=== PATIENT | female | born 1955 | race Caucasian/White ===

== ENCOUNTER 2017-08-08 16:21 | Emergency (ER) | payer MEDICARE, MEDICAID ==
[~2017-08-08] VITALS: Ht 165.1 cm; Wt 54.4 kg
[~2017-08-08 16:21] MED LIST: ALBU2.5V38 IH; MIRT15TA PO; QUET50TA PO
[2017-08-08] MEDS ORDERED: DEXAMETHASONE SOD PHOSPHATE 4 MG INJ IM ONE (17:30)
--- NOTE | 2017-08-08 17:44 | NUR ---
Patient discharged to home in stable conditon. Written and verbal after care instructions given. Patient verbalizes understanding of instructions.pt walks in steady gait.
[2017-08-08] MEDS ORDERED: DEXAMETHASONE SOD PHOSPHATE 4 MG INJ ONE (17:50)
[2017-08-08 18:04] VITALS: BP 109/60
== END 2017-08-08 18:05 | disposition home or self-care (01) ==
LOC: ER 16:23
DX: M54.6 Pain in thoracic spine (principal); J45.909 Unspecified asthma, uncomplicated; K21.9 Gastro-esophageal reflux disease without esophagitis; Z88.0 Allergy status to penicillin; Z88.6 Allergy status to analgesic agent; F17.200 Nicotine dependence, unspecified, uncomplicated
CPT/HCPCS: 96372; 99283; A4663; J1100

== ENCOUNTER 2018-02-18 11:19 | Emergency (ER) | payer MEDICARE, MEDICAID ==
[~2018-02-18] VITALS: Ht 165.1 cm; Wt 53.5 kg
[2018-02-18] MEDS ORDERED: BACLOFEN 10 MG (11:33)
[2018-02-18] MEDS ORDERED: TRAM50TA2 PO (11:33)
[2018-02-18] MEDS ORDERED: ERYTHROMYCIN 0.5% EYE OINTMENT (11:33)
--- NOTE | 2018-02-18 11:50 | NUR ---
Patient discharged to home in stable conditon. Written and verbal after care instructions given. Patient verbalizes understanding of instructions.
== END 2018-02-18 11:52 | disposition home or self-care (01) ==
LOC: ER 11:21
DX: M54.5 Low back pain (principal); J45.909 Unspecified asthma, uncomplicated; K21.9 Gastro-esophageal reflux disease without esophagitis; F17.210 Nicotine dependence, cigarettes, uncomplicated; F12.10 Cannabis abuse, uncomplicated; Z88.0 Allergy status to penicillin; Z88.5 Allergy status to narcotic agent; Z88.1 Allergy status to other antibiotic agents; Z79.891 Long term (current) use of opiate analgesic; Z79.899 Other long term (current) drug therapy
CPT/HCPCS: A4663

== ENCOUNTER 2018-10-14 12:26 | Emergency (ER) | payer MEDICARE, MEDICAID ==
[~2018-10-14] VITALS: Ht 165.1 cm; Wt 52.2 kg
[~2018-10-14 12:26] MED LIST changes: +BACLOFEN 10 MG; +ERYTHROMYCIN 0.5% EYE OINTMENT; +TRAM50TA2 PO
[2018-10-14] MEDS ORDERED: methylPREDNISolone ACETATE 40 MG VIAL ONE (12:52)
[2018-10-14] MEDS ORDERED: BUPIVACAINE PF 0.75% 10 ML VIAL ONE (12:52)
[2018-10-14] MEDS ORDERED: methylPREDNISolone ACETATE 40 MG VIAL IM ONE (13:00)
[2018-10-14] MEDS ORDERED: BUPIVACAINE PF 0.75% 10 ML VIAL TP ONE (13:00)
[2018-10-14] MEDS ORDERED: BUPIVACAINE PF 0.5% 30 ML VIAL TP ONE (13:00)
--- NOTE | 2018-10-14 13:01 | NUR ---
Patient discharged to home in stable conditon. Written and verbal after care instructions given. Patient verbalizes understanding of instructions.PT WALKS IN STEADY GAIT.
== END 2018-10-14 13:03 | disposition home or self-care (01) ==
LOC: ER 12:26
DX: M54.6 Pain in thoracic spine (principal); J45.909 Unspecified asthma, uncomplicated; K21.9 Gastro-esophageal reflux disease without esophagitis; F17.200 Nicotine dependence, unspecified, uncomplicated; F12.10 Cannabis abuse, uncomplicated; Z88.0 Allergy status to penicillin; Z88.1 Allergy status to other antibiotic agents; Z88.5 Allergy status to narcotic agent; Z79.899 Other long term (current) drug therapy
CPT/HCPCS: 96372; 99283; J1030; J3490; A4663

== ENCOUNTER 2019-01-24 19:25 | Emergency (ER) | payer MEDICARE, MEDICAID ==
[~2019-01-24] VITALS: Ht 165.1 cm; Wt 52.6 kg
[2019-01-24] MEDS ORDERED: VISCOUS LIDOCAINE PO (19:52)
[2019-01-24] MEDS ORDERED: ALPRAZOLAM 0.25 MG (19:52)
[2019-01-24] MEDS ORDERED: EPI PEN IM (19:52)
[2019-01-24] MEDS ORDERED: QUETIAPINE 50 MG (19:52)
[2019-01-24] MEDS ORDERED: METOCLOPRAMIDE HCL 10 MG/2 ML VIAL IV ONE (20:15)
[2019-01-24] MEDS ORDERED: diphenhydrAMINE 50 MG/1 ML VIAL IV ONE (20:15)
[2019-01-24] MEDS ORDERED: diphenhydrAMINE 50 MG/1 ML VIAL ONE (20:23)
[2019-01-24] MEDS ORDERED: METOCLOPRAMIDE HCL 10 MG/2 ML VIAL ONE (20:23)
--- NOTE | 2019-01-24 21:00 | NUR ---
Patient states "I feel alot better. I can go home now."
--- NOTE | 2019-01-24 21:09 | NUR ---
IV removed. Catheter intact and site benign. Pressure and 4x4 gauze applied to site. No bleeding noted.
[2019-01-24 21:10] VITALS: BP 110/69
== END 2019-01-24 21:12 | disposition home or self-care (01) ==
LOC: ER 19:25
DX: G43.909 Migraine, unspecified, not intractable, without status migrainosus (principal); J45.909 Unspecified asthma, uncomplicated; K21.9 Gastro-esophageal reflux disease without esophagitis; F12.10 Cannabis abuse, uncomplicated; F17.290 Nicotine dependence, other tobacco product, uncomplicated; Z71.6 Tobacco abuse counseling; Z88.0 Allergy status to penicillin; Z88.1 Allergy status to other antibiotic agents; Z88.5 Allergy status to narcotic agent; Z79.899 Other long term (current) drug therapy
CPT/HCPCS: 96374; 96375; 99283; 99406; J1200; J2765; A4663

== ENCOUNTER 2020-03-22 09:24 | Emergency (ER) | payer MEDICARE, MEDICAID ==
[~2020-03-22] VITALS: Ht 165.1 cm; Wt 54.4 kg
[~2020-03-22 09:24] MED LIST changes: +ALPRAZOLAM 0.25 MG; +EPI PEN IM; -ERYTHROMYCIN 0.5% EYE OINTMENT; +QUETIAPINE 50 MG; +VISCOUS LIDOCAINE PO
[2020-03-22] MEDS ORDERED: HYDROCODONE/APAP 5-325MG TABLET ONE (10:00)
[2020-03-22] MEDS ORDERED: HYDROCODONE/APAP 5-325MG TABLET PO ONE (10:00)
[2020-03-22] MEDS ORDERED: KETOROLAC TROMETHAMINE 30 MG INJ IM ONE (10:00)
[2020-03-22] MEDS ORDERED: KETOROLAC TROMETHAMINE 30 MG INJ ONE (10:00)
[2020-03-22 10:10] LABS: BASOPHILS % (AUTO) 0.7 % (0.0-2.0); EOSINOPHILS # (AUTO) 0.1 K/uL (0.0-0.7); EOSINOPHILS % (AUTO) 2.5 % (0.0-7.0); HEMATOCRIT 38.6 % (31.2-41.9); HEMOGLOBIN 12.6 g/dL (10.9-14.3); LYMPHOCYTES % (AUTO) 26.9 % (20.5-51.5); MEAN CORPUSCULAR HGB CONC 33 g/dL (32.3-35.6); MEAN CORPUSCULAR VOLUME 91.4 fL (75.5-95.3); MONOCYTES # (AUTO) 0.4 K/uL (2.0-10.0); MONOCYTES % (AUTO) 9.2 % (0.0-11.0); NEUTROPHILS # (AUTO) 2.3 K/uL (1.8-8.9); NEUTROPHILS % (AUTO) 60.7 % (38.5-71.5); PLATELET COUNT (AUTO) 188 K/uL (179-408); RED BLOOD CELL COUNT(AUTO) 4.22 MIL/uL (3.63-4.92); WHITE BLOOD COUNT (AUTO) 3.9 K/uL (3.8-11.8)
[2020-03-22] MEDS ORDERED: LIDOCAINE HCL 1% 20 ML VIAL IJ ONE (10:15)
[2020-03-22] MEDS ORDERED: LIDOCAINE HCL 1% 20 ML VIAL ONE (10:31)
[2020-03-22 11:00] LABS: POTASSIUM 3.8 mmol/L (3.5-5.1)
[2020-03-22 11:04] LABS: BILIRUBIN,DIRECT 0.1 mg/dL (0.0-0.2); BILIRUBIN,TOTAL 0.4 mg/dL (0.2-1.0); TOTAL PROTEIN, SERUM 7.1 g/dL (6.4-8.2)
[2020-03-22] MEDS ORDERED: LET TOPICAL SOLUTION 8 ML UDC ONE (11:07)
[2020-03-22] MEDS ORDERED: LET TOPICAL SOLUTION 8 ML UDC TP ONE (11:15)
--- NOTE | 2020-03-22 11:53 | NUR ---
PT WAS EVALUATED BY DR VILLEGAS. PT WAS D/C'd TO HOME. D/C INSTRUCTIONS GIVEN TO THE PT BY DR VILLEGAS.
[2020-03-22 11:54] VITALS: BP 132/78
[2020-06-22] MEDS ORDERED: ALPR0.255 PO (14:21)
[2020-06-22] MEDS ORDERED: VISCOUS LIDOCAINE PO (14:21)
[2020-06-22] MEDS ORDERED: HYDR-501 PO (14:21)
[2020-06-22] MEDS ORDERED: BACL10TA PO (14:21)
[2020-06-22] MEDS ORDERED: TRAM50TA2 PO (14:21)
[2020-06-22] MEDS ORDERED: EPIN0.3P3 IM (14:21)
[2020-06-22] MEDS ORDERED: QUET50TA PO (14:21)
== END 2020-03-22 11:55 | disposition home or self-care (01) ==
LOC: ER 09:24
PROC: 3E023BZ Introduction of Anesthetic Agent into Muscle, Percutaneous Approach (ICD-10-PCS; principal; 2020-03-22)
DX: S29.012A Strain of muscle and tendon of back wall of thorax, initial encounter (principal); X58.XXXA Exposure to other specified factors, initial encounter; Y92.89 Other specified places as the place of occurrence of the external cause; Y99.8 Other external cause status; G62.9 Polyneuropathy, unspecified; N17.9 Acute kidney failure, unspecified; R00.1 Bradycardia, unspecified; J45.909 Unspecified asthma, uncomplicated; F17.200 Nicotine dependence, unspecified, uncomplicated
CPT/HCPCS: 20553; 36415; 71046; 80048; 80076; 84484; 85025; 93005; 96372; 99285; 99406; J1885; J3490; 70030-TC; A4663

== ENCOUNTER 2020-04-25 19:35 | Emergency (ER) | payer MEDICARE, MEDICAID ==
[~2020-04-25] VITALS: Ht 165.1 cm; Wt 56.7 kg
[2020-04-25] MEDS ORDERED: METO-295 PO (19:51)
[2020-04-25] MEDS ORDERED: ONDA4TAB8 PO (19:51)
--- NOTE | 2020-04-25 20:02 | NUR ---
Dr. Roman at bedside for MSE
[2020-04-25] MEDS ORDERED: diphenhydrAMINE 50 MG/1 ML VIAL IV ONE (20:15)
[2020-04-25] MEDS ORDERED: KETOROLAC TROMETHAMINE 30 MG INJ IVP ONE (20:15)
[2020-04-25] MEDS ORDERED: IV NS 1000 ML 1,000 ML IV ONE (20:15)
[2020-04-25] MEDS ORDERED: METOCLOPRAMIDE HCL 10 MG/2 ML VIAL IV ONE (20:15)
[2020-04-25] MEDS ORDERED: DEXAMETHASONE SOD PHOSPHATE 4 MG INJ IV ONE (20:15)
[2020-04-25] MEDS ORDERED: DEXAMETHASONE SOD PHOSPHATE 10 MG INJ ONE (20:34)
[2020-04-25] MEDS ORDERED: diphenhydrAMINE 50 MG/1 ML VIAL ONE (20:34)
[2020-04-25] MEDS ORDERED: METOCLOPRAMIDE HCL 10 MG/2 ML VIAL ONE (20:35)
[2020-04-25] MEDS ORDERED: KETOROLAC TROMETHAMINE 30 MG INJ ONE (20:35)
--- NOTE | 2020-04-25 22:33 | NUR ---
MSE COMPLETED. PT STATED HEADACHE 10 AFTER MEDS, TAXI ARRIVED. PT AMBULATED TO [facility] W/O DIFF, TOOKM ALL BELONGINGS, ACI/REFERRAL GIVEN.
[2020-04-25 22:34] VITALS: BP 118/63
== END 2020-04-25 22:35 | disposition home or self-care (01) ==
LOC: ER 19:38
DX: R51 Headache (principal); Z86.69 Personal history of other diseases of the nervous system and sense organs; Z82.49 Family history of ischemic heart disease and other diseases of the circulatory system; J45.909 Unspecified asthma, uncomplicated; K21.9 Gastro-esophageal reflux disease without esophagitis; G62.9 Polyneuropathy, unspecified; Z79.899 Other long term (current) drug therapy
CPT/HCPCS: 96361; 96374; 96375; 99284; J1100; J1200; J1885; J2765; A4663; J7030